=== PATIENT | female | born 1930 | race African-American/Black ===

== ENCOUNTER 2019-04-07 12:10 | Emergency (ER) | payer BC, OTHER ==
[~2019-04-07] VITALS: Ht 152.4 cm; Wt 68.0 kg
[~2019-04-07 12:10] MED LIST: AMLO10TA8 PO; AMLO2.5T2 PO; ASPI-612 PO; ATEN50TA PO; CIPR250T30 PO; FERR325T72 PO; FURO40TA4 PO; LISI30TA4 PO; METO-239 PO; METR500T PO; PRAV20TA2 PO
[2019-04-07 12:15] VITALS: BP 120/57
--- NOTE | 2019-04-07 12:57 | RAD ---
CT head without contrast dated 04/07/2019. Comparison made to 09/25/2017. CLINICAL INDICATION: Pain after fall. TECHNIQUE: Contiguous axial imaging the head was performed from skull base to vertex. No contrast administered. One or more of the following individualized dose reduction techniques were utilized for this examination: 1. Automated exposure control 2. Adjustment of the mA and/or kV according to patient size 3. Use of iterative reconstruction technique. FINDINGS: Ventricles and sulci are mildly prominent for age. No midline shift or mass effect. Moderate patchy low density in the deep/subcortical periventricular white matter, similar slightly increased from prior study. No hemorrhage or extra-axial collection. Posterior fossa and brainstem unremarkable. Visualized paranasal sinuses and mastoid air cells are clear. No apparent calvarial abnormality. IMPRESSION: 1. No evidence of acute intracranial hemorrhage or mass. 2. Moderate chronic small vessel ischemic changes, somewhat progressed from the prior exam. 3. Age advanced atrophy. Electronically signed by: Jovanny Hale MD (04/07/2019 12:54 PM) [id number]
--- NOTE | 2019-04-07 13:26 | PHYS DOC ---
Past Medical History Past Medical History: Arthritis, High Cholesterol, Hypertension, Unknown Additional Past Medical Histor: partially deaf- pt. poor historian Past Surgical History: Other Additional Past Surgical Histo: pt. poor historian Alcohol Use: None Drug Use: None Adult General Chief Complaint Chief Complaint: MECHANICAL FALL [facility] HPI Patient is a 88 year old F who presents for fall from standing at [facility]. She did not lose consciousness but thinks she may have hit her head. She denies any pain anywhere now. She is feeling much better. She denies any pain in her neck or with movement of her neck. Denies cp, sob. She otherwise feels well. SShe says she tripped over a curb. She did not feel dizzy or faint. Review of Systems Review of Systems Constitutional: Denies fever or chills Eyes: Denies change in visual acuity, redness, or eye pain HENT: Denies nasal congestion or sore throat Respiratory: Denies cough or shortness of breath Cardiovascular: No additional information not addressed in HPI GI: Denies abdominal pain, nausea, vomiting, bloody stools or diarrhea : Denies dysuria or hematuria Musculoskeletal: Denies back pain or joint pain Integument: Denies rash or skin lesions Neurologic: Denies headache, focal weakness or sensory changes Endocrine: Denies polyuria or polydipsia All other systems were reviewed and found to be within normal limits, except as documented in this note. Allergies Allergies Allergies Coded Allergies Type Severity Reaction Last Updated Verified doxycycline Allergy Intermediate 06/07/15 Yes Physical Exam Physical Exam Constitutional: Well developed, well nourished, no acute distress, non-toxic appearance. HENT: Normocephalic, atraumatic, bilateral external ears normal, oropharynx moist, no oral exudates, nose normal. Eyes: PERRL, EOMI, conjunctiva normal, no discharge. Neck: Normal range of motion, no tenderness, supple, no stridor. Cardiovascular:Heart rate regular rhythm, no murmur Lungs & Thorax: Bilateral breath sounds clear to auscultation Abdomen: Bowel sounds normal, soft, no tenderness, no masses, no pulsatile masses. Skin: Warm, dry, no erythema, no rash. Back: No tenderness, no CVA tenderness. Extremities: No tenderness, no cyanosis, no clubbing, ROM intact, no edema. Neurologic: Alert and oriented X 1, normal motor function, normal sensory function, no focal deficits noted. Psychologic: Affect normal, judgement normal, mood normal. Current Patient Data Vital Signs Vital Signs Date Time Temp Pulse Resp B/P (MAP) Pulse Ox O2 Delivery O2 Flow Rate FiO2 04/07/19 12:15 99.0 75 16 120/57 (78) 97 Room Air 99.0 EKG EKG [] Radiology/Procedures Radiology/Procedures [] Course & Med Decision Making Course & Med Decision Making Pertinent Labs and Imaging studies reviewed. (See chart for details) 88 y/o F presents for mechanical fall outside [facility]. She feels completely fine and has no pain or complaints. She has dementia at baseline and is typically oriented only to self, which she is today. CT head neg for acute findings. Patient's nephew is here to take her home. She is well appearing and neuro intact. DC home. Follow up with PMD. Pardeep Disclaimer Pardeep Disclaimer This electronic medical record was generated, in whole or in part, using a voice recognition dictation system. Departure Departure Impression: Primary Impression: Fall Disposition: 01 HOME, SELF-CARE Condition: IMPROVED Referrals: RALPH SANDERS MD (PCP) Patient Instructions: Fall Prevention and Home Safety JEFF RUDOLPH MD April 07, 2019 13:26
== END 2019-04-07 14:11 | disposition home or self-care (01) ==
LOC: ER 12:10
DX: S09.90XA Unspecified injury of head, initial encounter (principal); E78.00 Pure hypercholesterolemia, unspecified; I10 Essential (primary) hypertension; Z88.1 Allergy status to other antibiotic agents; W18.39XA Other fall on same level, initial encounter; Y93.89 Activity, other specified; Y92.89 Other specified places as the place of occurrence of the external cause; Y99.8 Other external cause status
CPT/HCPCS: 70450; 99284